=== PATIENT | female | born 1955 | race Caucasian/White ===

== ENCOUNTER → 2022-05-12 07:48 | Outpatient (CLI) | payer OTHER, SELFPAY ==
--- NOTE | 2022-05-12 07:49 | DI.MG.S_ITS ---
BILATERAL DIGITAL SCREENING MAMMOGRAM 3D/2D WITH CAD: 05/12/2022 CLINICAL: Routine screening. Family history of breast cancer. Comparison is made to exams dated: 03/26/2021 mammogram, 03/19/2020 mammogram, and 10/04/2018 mammogram - outside location. Both breasts are extremely dense, which lowers the sensitivity of mammography (category d />75% glandular tissue). Current study was also evaluated with a Computer Aided Detection (CAD) system. No significant masses, calcifications, or other findings are seen in either breast. There has been no significant interval change. IMPRESSION: NEGATIVE There is no mammographic evidence of malignancy. A 1 year screening mammogram is recommended. Based on Tyrer-Cuzick model (a risk assessment model), the patient's lifetime risk is 26.7% and her 10 year risk is 13.7%. If a patient has an elevated risk, a more comprehensive evaluation should be considered and/or a referral to a genetic counselor. The [place] [employer], [place] [employer], and NCCN Guidelines advise the consideration of Breast MRI as an adjunct to screening mammography in patients whose Lifetime risk to develop breast cancer is 20% or higher. This exam was interpreted at Station ID: [id number]. NOTE: For mammograms, a report in lay terms will be sent to the patient. Approximately 15% of breast malignancies will not be visualized mammographically. In the management of a palpable breast mass, a negative mammogram must not discourage biopsy of a clinically suspicious lesion. Electronically Signed By: Jonah singh/patti:05/12/2022 10:36:44 letter sent: Normal Exam ACR BI-RADS Category 1: Negative 3341F
== END ==
PROVIDERS: PCP Registered Nurse Diabetes Educator; Referring Provider Registered Nurse Diabetes Educator; Visit Provider Registered Nurse Diabetes Educator
DX: Z12.31 Encounter for screening mammogram for malignant neoplasm of breast (principal); Z80.3 Family history of malignant neoplasm of breast
CPT/HCPCS: 77063; 77067

== ENCOUNTER → 2022-06-20 08:02 | Outpatient (CLI) | payer OTHER, SELFPAY ==
[2022-06-20 09:08] LABS: Appearance Urine UA CLEAR; Bilirubin Urine UA NEGATIVE (NEGATIVE); Color Urine UA YELLOW; Glucose Urine UA NEGATIVE (Negative); Ketones Urine UA NEGATIVE (NEGATIVE); Leukocyte Esterase Urine UA NEGATIVE (NEGATIVE); Nitrite Urine UA NEGATIVE (Negative); Occult Blood Urine UA NEGATIVE (Negative); Protein Urine UA NEGATIVE (Negative); Specific Gravity Urine UA <=1.005 (1.000-1.035); Urobilinogen Urine UA 0.2 E.U./dL (0.2)
[2022-06-20 09:12] LABS: pH Urine UA 6.5 (4.5-8.0)
[2022-06-20 09:18] LABS: Bacteria Urine Moderate (10-30); Culture Indicated Urine Specimen Cultured; RBC Urine None Seen (0-5/HPF); Squamous Epithelial Cell Urine 1-5 /HPF (0-5/HPF); WBC Urine 1-5/HPF (0-5/HPF)
== END ==
PROVIDERS: PCP Registered Nurse Diabetes Educator; Referring Provider Registered Nurse Diabetes Educator; Visit Provider Registered Nurse Diabetes Educator
DX: R30.9 Painful micturition, unspecified (principal); R35.0 Frequency of micturition
CPT/HCPCS: 81001; 87086

== ENCOUNTER → 2022-06-26 09:03 | Outpatient (CLI) | payer OTHER, SELFPAY ==
[2022-06-26 09:45] LABS: Appearance Urine UA CLEAR; Bilirubin Urine UA NEGATIVE (NEGATIVE); Color Urine UA YELLOW; Glucose Urine UA NEGATIVE (Negative); Ketones Urine UA NEGATIVE (NEGATIVE); Leukocyte Esterase Urine UA TRACE (NEGATIVE); Nitrite Urine UA NEGATIVE (Negative); Occult Blood Urine UA NEGATIVE (Negative); Protein Urine UA NEGATIVE (Negative); Specific Gravity Urine UA <=1.005 (1.000-1.035); Urobilinogen Urine UA 0.2 E.U./dL (0.2)
[2022-06-26 09:50] LABS: pH Urine UA 5.5 (4.5-8.0)
[2022-06-26 09:52] LABS: Bacteria Urine Many (>30); Culture Indicated Urine Specimen Cultured; RBC Urine None Seen (0-5/HPF); Squamous Epithelial Cell Urine 1-5 /HPF (0-5/HPF); WBC Urine 1-5/HPF (0-5/HPF)
== END ==
PROVIDERS: PCP Registered Nurse Diabetes Educator; Referring Provider Registered Nurse Diabetes Educator; Visit Provider Registered Nurse Diabetes Educator
DX: R30.9 Painful micturition, unspecified (principal); R39.15 Urgency of urination
CPT/HCPCS: 81001; 87086

== ENCOUNTER → 2022-08-21 15:57 | Outpatient (CLI) | payer OTHER, SELFPAY ==
--- NOTE | 2022-08-21 15:59 | DI.RAD.S_ITS ---
PROCEDURE: XR KNEE LT 3V INDICATIONS: Left knee strain TECHNIQUE: 3 views of the knee were acquired. COMPARISON: None. FINDINGS: Bones: No fractures or dislocations. No suspicious bony lesions. Mild fragmentation of the tibial tubercle. Soft tissues: No joint effusion. No suspicious soft tissue calcifications. IMPRESSION: 1. No definite acute radiographic abnormality. If pain persists with conservative management, consider cross sectional imaging such as CT or MRI for further assessment. 2. Mild fragmentation of the tibial tubercle which can be associated with remote Darlington-Schlatter's disease. Dictated by: Thomas Madden [facility] Interpreted: Ronald De Los Santos MD on 08/21/2022 at 16:18 Transcribed by: SHAQUILLE on 08/21/2022 at 16:19 Approved by: Ronald De Los Santos M.D. on 08/21/2022 at 17:10
== END ==
PROVIDERS: PCP Registered Nurse Diabetes Educator; Referring Provider Nurse Practitioner Family; Visit Provider Nurse Practitioner Family
DX: S86.912A Strain of unspecified muscle(s) and tendon(s) at lower leg level, left leg, initial encounter (principal); X58.XXXA Exposure to other specified factors, initial encounter
CPT/HCPCS: 73562

== ENCOUNTER → 2023-01-22 08:08 | Outpatient (CLI) | payer OTHER, SELFPAY ==
--- NOTE | 2023-01-22 08:10 | DI.MRI.S_ITS ---
PROCEDURE: MR SHOULDER LT WO CON INDICATIONS: left shoulder pain TECHNIQUE: Noncontrast oblique coronal T2 fast spin echo with fat saturation, oblique sagittal T1 spin echo and T2 fast spin echo with fat saturation, axial T1 spin echo and T2 fast spin echo with fat saturation through the shoulder. COMPARISON: None. FINDINGS: Image quality: Excellent. Rotator cuff: There is low-grade intrasubstance and bursal surface tearing of the anterior/mid supraspinatus tendon at the humeral insertion site extending to the musculotendinous junction. Infraspinatus, subscapularis and teres minor tendons are intact. Bones and bursae: No bone marrow contusions or fractures. Mild glenohumeral and moderate acromioclavicular joint degeneration. The acromion demonstrates conventional anatomy, without an os acromiale. No pathologic subacromial-subdeltoid or subcoracoid bursal fluid is present. Capsule and soft tissues: Labrum is grossly intact The long head of the biceps tendon demonstrates normal location and morphology. The rotator interval appears normal, without fibrosis. The coracohumeral ligament is normal in thickness. IMPRESSION: 1. Low-grade tearing of the supraspinatus tendon. 2. Acromioclavicular and glenohumeral joint osteoarthritis. Dictated by: Nancy Wilson M.D. on 01/25/2023 at 10:03 Approved by: Nancy Wilson M.D. on 01/25/2023 at 10:05
== END ==
PROVIDERS: Family Provider Registered Nurse Diabetes Educator; PCP Registered Nurse Diabetes Educator; Referring Provider Family Medicine; Visit Provider Family Medicine
DX: M19.012 Primary osteoarthritis, left shoulder (principal); M75.112 Incomplete rotator cuff tear or rupture of left shoulder, not specified as traumatic; M25.512 Pain in left shoulder
CPT/HCPCS: 73221

== ENCOUNTER → 2023-05-06 09:12 | Outpatient (CLI) | payer OTHER, SELFPAY ==
--- NOTE | 2023-05-06 09:14 | DI.NM.S_ITS ---
PROCEDURE: NM BETTY PERF SPECT R&S PHARM Rest and pharmacological stress myocardial perfusion SPECT with gated imaging and ejection fraction RADIOPHARMACEUTICAL: 11.5 mCi Tc-99m tetrafosmin IV at rest and 24.8 mCi Tc-99m tetrafosmin IV at peak effect of pharmacological stress. A 7-ygm-liietxgc was performed. INDICATIONS: eval exertional CP, dizziness, SORIANO TECHNIQUE: Radiopharmaceutical was injected at peak stress test, and also at rest. SPECT images were obtained. SPECT myocardial perfusion images were displayed in short axis, horizontal long axis, and vertical long axis views. Gated images were reviewed using [employer] software. COMPARISON: None. CARDIAC STRESS: A pharmacologic stress test was performed under the supervision of an attending staff, using an infusion of regadenoson 0.4 mg IV. Hemodynamic data: There is normal blood pressure and heart rate response to pharmacologic stress. Symptoms: The patient denied anginal chest pain. EKG: No diagnostic changes of ischemia; no ectopy. FINDINGS: Raw data: There is good myocardial uptake of radiotracer. No significant motion artifacts. Koln-if-mmnqz ratio is 0.14 (normal is less than 0.38 for tetrafosmin tracer). Left ventricle function: Gated images demonstrate normal left ventricular wall thickening. No segmental wall motion abnormalities. No transient ischemic dilation; TID is 0.83 (normal less than 1.3). Left ventricle resting end diastolic volume is 60 mL. Left ventricle stress ejection fraction is >75%; normal range is above 45%. Myocardial perfusion: There is normal distribution of activity in the right and left ventricular myocardium. No fixed or reversible perfusion defects. IMPRESSION: Low risk study. No evidence of biologic induced ischemia or scar. Normal LV size with hyperdynamic function. Dictated by: Della Stacy D.O. on 05/06/2023 at 16:35 Approved by: Della Stacy D.O. on 05/06/2023 at 16:37
--- NOTE | 2023-05-06 09:14 | DI.ECHO.S_ITS ---
[facility] +---------+ : : [address] : : : : [id number] : : : : Phone: [phone]---------+ Echocardiogram Report + + :Name: AYE GILMAN Study Date: 05/06/2023 Height: 61 in : :[facility] ReadingLocation: Weight: 115 lb : : Gender: Female BSA: 1.5 m2 : :: 1955 Age: 67 yrs BP: 111/72 mmHg: :Reason For Study: CHEST PAIN, DIZZINESS : :Ordering Physician: SAMIA, : :FRANCHESKA Performed By: Dalia Carney : :Referring: FRANCHESKA GRACIA : + + Interpretation Summary The left ventricle is normal in size and wall thickness. Left ventricular systolic function appears normal without focal wall motion abnormalities. The ejection fraction is estimated to be 60-65%. Diastolic parameters suggest a relaxation abnormality of the left ventricle, consistent with probable normal filling pressures. The right ventricle is normal in size and function. The right ventricular systolic pressure is estimated to be at least 22 mmHg based on an estimated right atrial pressure of 3 mm Hg. The left atrial size is normal. There is no significant valvular heart disease. The aortic root is normal size. Procedure: A two-dimensional transthoracic echocardiogram with color flow and Doppler was performed. The study quality was technically adequate. There is no prior echocardiogram noted for this patient. The patient was in sinus rhythm with heart rates between 59-65 bpm during the exam. Left Ventricle: The left ventricle is normal in size and wall thickness. Left ventricular systolic function appears normal without focal wall motion abnormalities. The ejection fraction is estimated to be 60-65%. Diastolic parameters suggest a relaxation abnormality of the left ventricle, consistent with probable normal filling pressures. Right Ventricle: The right ventricle is normal in size and function. Atria: The left atrial size is normal. Right atrial size is normal. There is no Doppler evidence for an interatrial shunt. Mitral Valve: The mitral valve is normal in structure and function. There is trace mitral regurgitation. Aortic Valve: The aortic valve is trileaflet. The aortic valve opens well. There is no aortic valve stenosis. No aortic regurgitation is present. Tricuspid Valve: The tricuspid valve is normal in structure and function. There is mild tricuspid regurgitation. The right ventricular systolic pressure is estimated to be at least 22 mmHg based on an estimated right atrial pressure of 3 mm Hg. Pulmonic Valve: The pulmonic valve leaflets are thin and pliable; valve motion is normal. There is no pulmonic valvular regurgitation. There is no significant valvular heart disease. Great Vessels: The aortic root is normal size. The dimensions of the ascending aorta are normal. The IVC is of normal diameter and collapses greater than 50% with a sniff. This suggests a low right atrial pressure of 3 mm Hg. Pericardium/ Pleura There is no pericardial effusion. There is no pleural effusion. MMode/2D Measurements & Calculations LVIDd: 4.0 cm LVOT diam: 2.1 cm LVIDs: 3.0 cm Ao root diam: 2.7 cm FS: 26.3 % asc Aorta Diam: 2.7 cm IVSd: 0.63 cm Ao Arch Diam (Prox Trans): 2.2 cm LVPWd: 0.69 cm LV mancilla. diameter/BSA (cm/m^2): 2.7 LV sys. diameter/BSA (cm/m^2): 2.0 LA A2 area: 11.7 cm2 RA long axis: 3.8 cm LA A4 area: 8.7 cm2 RA area: 11.5 cm2 LA length (vol): 3.7 cm RA vol: 29.5 ml LA vol: 23.5 ml RA : 19.7 ml/m2 LA vol index: 15.7 ml/m2 IVC diam: 1.2 cm RVD1 (basal): 3.7 cm RVD2 (mid): 2.8 cm TAPSE: 2.5 cm Doppler Measurements & Calculations Ao V2 max: 105.2 cm/sec LVOT Max Ac: 78.6 cm/sec Ao V2 mean: 71.6 cm/sec LV V1 max P.5 mmHg Ao max P.4 mmHg LV V1 VTI: 18.1 cm Ao mean P.3 mmHg MARYCARMEN(I,D): 2.5 cm2 Ao V2 VTI: 23.7 cm MARYCARMEN(V,D): 2.5 cm2 sev ratio: 0.76 MARYCARMEN indexed to BSA (cm^2/m^2): 1.7 MV E max ac: 64.8 cm/sec TR max ac: 215.4 cm/sec MV A max ac: 73.0 cm/sec TR max P.6 mmHg MV E/A: 0.89 PA V2 max: 71.1 cm/sec Med Peak E' Ac: 10.8 cm/sec PA V2 mean: 51.2 cm/sec E/E' med: 6.0 PA mean P.2 mmHg Lat Peak E' Ac: 10.2 cm/sec PA pr(Accel): 17.3 mmHg E/E' lat: 6.4 E/e' average: 6.2 MV dec time: 0.22 sec SV(LVOT): 60.4 ml Reading Physician:01:26 PM
== END ==
PROVIDERS: Family Provider Registered Nurse Diabetes Educator; PCP Registered Nurse Diabetes Educator; Referring Provider Registered Nurse Diabetes Educator; Visit Provider Registered Nurse Diabetes Educator
DX: I07.1 Rheumatic tricuspid insufficiency (principal); R07.9 Chest pain, unspecified; R42 Dizziness and giddiness; R06.09 Other forms of dyspnea
CPT/HCPCS: 78452; 93017; 93306; A9502; J2785

== ENCOUNTER → 2023-10-29 15:16 | Outpatient (CLI) | payer OTHER, SELFPAY ==
--- NOTE | 2023-10-29 15:16 | DI.MG.S_ITS ---
BILATERAL DIGITAL SCREENING MAMMOGRAM 3D/2D WITH CAD: 10/29/2023 CLINICAL: Routine screening. Family history of breast cancer. Comparison is made to exams dated: 11/10/2022 breast MRI - [facility], 05/12/2022 mammogram - [facility], 03/26/2021 mammogram, and 03/19/2020 mammogram - outside location. Both breasts are extremely dense, which lowers the sensitivity of mammography (category d />75% glandular tissue). Current study was also evaluated with a Computer Aided Detection (CAD) system. No significant masses, calcifications, or other findings are seen in either breast. There has been no significant interval change. IMPRESSION: NEGATIVE There is no mammographic evidence of malignancy. A 1 year screening mammogram is recommended. Based on Tyrer-Cuzick model (a risk assessment model), the patient's lifetime risk is 26.0% and her 10 year risk is 14.4%. If a patient has an elevated risk, a more comprehensive evaluation should be considered and/or a referral to a genetic counselor. The [place] [employer], [place] [employer], and NCCN Guidelines advise the consideration of Breast MRI as an adjunct to screening mammography in patients whose Lifetime risk to develop breast cancer is 20% or higher. This exam was interpreted at Station ID: [id number]. NOTE: For mammograms, a report in lay terms will be sent to the patient. Approximately 15% of breast malignancies will not be visualized mammographically. In the management of a palpable breast mass, a negative mammogram must not discourage biopsy of a clinically suspicious lesion. Electronically Signed By: Yevgeniy mackey/patti:10/29/2023 16:36:33 letter sent: Normal Exam ACR BI-RADS Category 1: Negative 3341F
== END ==
PROVIDERS: Family Provider Registered Nurse Diabetes Educator; PCP Registered Nurse Diabetes Educator; Referring Provider Registered Nurse Diabetes Educator; Visit Provider Registered Nurse Diabetes Educator
DX: Z12.31 Encounter for screening mammogram for malignant neoplasm of breast (principal); Z80.3 Family history of malignant neoplasm of breast; R92.343 Mammographic extreme density, bilateral breasts
CPT/HCPCS: 77063; 77067

== ENCOUNTER → 2023-12-08 08:46 | Outpatient (CLI) | payer OTHER, SELFPAY ==
--- NOTE | 2023-12-08 08:55 | DI.CT.S_ITS ---
PROCEDURE: CT SINUS SCREEN WO CON INDICATIONS: further eval R maxillary sinus TECHNIQUE: Noncontrast 3.0 mm axial images acquired from the frontal sinuses to the mid-sella, with coronal and sagittal reformats. For radiation dose reduction, the following was used: automated exposure control, adjustment of mA and/or kV according to patient size. COMPARISON: None. FINDINGS: Image quality: Excellent. Maxillary Sinuses: There is moderate mucosal thickening within the right maxillary sinus. The right maxillary sinus is small in size, with thickened anterior lauren. Along the medial aspects of both maxillary sinuses, nonnative ostia can be seen. The left maxillary sinus is otherwise within normal limits. Ethmoid Air Cells: No bony remodeling or destruction. Sinuses are clear. Sphenoid Sinuses: No bony remodeling or destruction. Sinuses are clear. Frontal Sinuses: No bony remodeling or destruction. Sinuses are clear. Ostiomeatal Complexes: The ostiomeatal complexes are patent, yet they are highly constitutionally narrowed, with bilateral Maxx cells. Miscellaneous: Visualized intra-orbital contents are normal. No tee bullosa or paradoxical turbinate curvature. There is mild rightward nasal septal deviation. IMPRESSION: Focal right maxillary sinus disease, with a chronic appearance, with remodeling change seen. There are nonnative ostia seen along the medial lauren of both maxillary sinuses. The ostiomeatal complexes are patent, yet they are highly constitutionally narrowed, with bilateral Maxx cells. Dictated by: Jesus Ferrari M.D. on 12/08/2023 at 9:57 Approved by: Jesus Ferrari M.D. on 12/08/2023 at 9:59
== END ==
PROVIDERS: Family Provider Registered Nurse Diabetes Educator; PCP Registered Nurse Diabetes Educator; Referring Provider Registered Nurse Diabetes Educator; Visit Provider Registered Nurse Diabetes Educator
DX: J32.0 Chronic maxillary sinusitis (principal)
CPT/HCPCS: 70486

== ENCOUNTER → 2024-07-10 07:21 | Outpatient (CLI) | payer OTHER, SELFPAY ==
[2024-07-10 07:58] LABS: Alanine Aminotransferase 21 IU/L (<35); Albumin 4.4 g/dL (3.5-5.0); Albumin Globulin Ratio 2.1 (1.0-2.8); Alkaline Phosphatase 37 U/L (38-126); Aspartate Aminotransferase 30 IU/L (14-36); Bilirubin Total 0.6 mg/dL (0.2-1.3); Bilirubin Unconjugated 0.5 mg/dL (0.0-1.1); Cholesterol 158 mg/dL (140-199); Globulin 2.1 g/dL (1.7-4.1); HDL Cholesterol 60 mg/dL (40-60); HEMOLYSIS < 15 (0-50); LDL Cholesterol Calculated 78 mg/dL (<100); Total Protein 6.5 g/dL (6.3-8.2); Triglycerides 99 mg/dL (35-150)
== END ==
PROVIDERS: Family Provider Registered Nurse Diabetes Educator; PCP Registered Nurse Diabetes Educator; Referring Provider Internal Medicine Cardiovascular Disease; Visit Provider Internal Medicine Cardiovascular Disease
DX: E78.2 Mixed hyperlipidemia (principal)
CPT/HCPCS: 36415; 80061; 80076

== ENCOUNTER → 2024-08-09 07:55 | Outpatient (CLI) | payer OTHER, SELFPAY ==
--- NOTE | 2024-08-09 07:58 | DI.MRI.S_ITS ---
MR breast BI wo/w con: 08/09/2024. BI-RADS: 1 CLINICAL: 69-year old female for bilateral diagnostic breast MRI. High-Risk Screening MRI. Current reported family history of breast cancer: mother. PRIOR EXAMS 10/29/2023, 11/10/2022, 05/12/2022. MRI TECHNIQUE Bilateral breast MRI was performed on a 1.5 Cristela magnet using a dedicated breast coil with mild compression. Axial T1 and T2 STIR sequences were obtained. Dynamic contrast enhanced VIBRANT fat-suppressed sequences were obtained. Delayed sagittal high resolution or sagittal reconstructed isotropic sequence was also obtained. Subtraction images and maximum intensity projection images were obtained. The study was evaluated using [employer] software. IV Contrast: 20 ml ProHance. FIBROGLANDULAR TISSUE Bilateral: D. Extreme fibroglandular tissue. BACKGROUND PARENCHYMAL ENHANCEMENT Bilateral: Mild symmetrical background parenchymal enhancement. BREAST FINDINGS Bilateral There are no abnormal axillary or internal mammary lymph nodes. No suspicious mass, suspicious non-mass enhancement, or other concerning finding identified. No significant change since previous exam(s). IMPRESSION: * No evidence of malignancy. RECOMMENDATIONS Bilateral * If this patient has an elevated lifetime risk for breast cancer of over 20%, recommend consideration for annual screening breast MRI as an adjunct to screening mammography. This is to be offset by approximately 6 months from patient's mammogram. * Annual screening mammography. COMMENTS: The imaging literature indicates that a negative contrast breast MRI examination has a high sensitivity and a moderate specificity for detecting and excluding invasive carcinomas to a detection threshold of 3-5 mm; nonetheless, appropriate clinical and mammographic follow-up are recommended. MRI is not sensitive for detecting DCIS (ductal carcinoma in situ) and may not detect large invasive neoplasms that show only minimal enhancement such as mucinous carcinoma. If there are suspicious calcifications or clinically worrisome palpable masses, then biopsy should still be considered. Invasive neoplasms can be hidden by co-existent and benign enhancement caused by mastitis, hormone therapy effects, radiation therapy, , and recent biopsy or surgery. False positive examinations can occur in a number of circumstances, including breasts that have recently been subject to invasive procedures and those that contain atypical ductal hyperplasia, hormonally stimulated glandular tissue, fat necrosis, or radial scars. OVERALL ASSESSMENT CATEGORY BI-RADS-1: Negative. ELECTRONICALLY SIGNED: Sridevi Wood M.D. on 08/09/2024 at 04:22:43 PM PT Interpreting Station ID: [id number]
== END ==
LOC: MRI 07:56
PROVIDERS: Family Provider Registered Nurse Diabetes Educator; PCP Registered Nurse Diabetes Educator; Referring Provider Registered Nurse Diabetes Educator; Visit Provider Registered Nurse Diabetes Educator
DX: Z12.39 Encounter for other screening for malignant neoplasm of breast (principal); Z80.3 Family history of malignant neoplasm of breast
CPT/HCPCS: 77049; A9579

== ENCOUNTER 2024-08-12 16:43 | Emergency (ER) | payer OTHER, SELFPAY ==
[2024-08-12] VITALS (14 sets, daily range): BP systolic 108–142; BP diastolic 58–87; PULSE 59–90; RESP 18–24; TEMP 36.4; O2SAT 96–99; BMI 21.5
[2024-08-12] MEDS: ONDANSETRON 4 MG/2 ML INJ IV (17:04)
[2024-08-12] MEDS: KETOROLAC 30 MG/ML VIAL 15 MG IV (17:10)
[2024-08-12 17:15] LABS: Add Manual Diff / Slide Review NO; Basophils Absolute Auto 0 /uL (0-100); Basophils Percent Auto 0.6 % (0-2); Eosinophils Absolute Auto 100 /uL (0-450); Eosinophils Percent Auto 0.7 % (2-4); Hematocrit 40.6 % (36-46); Hemoglobin 13.6 g/dL (12.0-16.0); Lymphocytes Absolute Auto 2500 /uL (1100-4500); Lymphocytes Percent Auto 33.5 % (25-40); Mean Corpuscular HGB Conc 33.6 % (30-36); Mean Corpuscular Hemoglobin 30.6 PG (26-34); Mean Corpuscular Volume 91.1 fL (80-100); Monocytes Absolute Auto 700 /uL (0-900); Monocytes Percent Auto 8.7 % (3-14); Neutrophils Absolute Auto 4200 /uL (1500-7000); Neutrophils Percent Auto 56.5 % (50-75); Platelet Count 196 X10^3/uL (150-400); Red Blood Cell Count 4.45 X10^6/uL (4.0-5.2); Red Cell Distribution Width 12.9 % (11.6-14.8); White Blood Cell Count 7.5 X10^3/uL (4.5-11.0)
--- NOTE | 2024-08-12 17:21 | EKG_ITS ---
[address] [address] Test Date: 2024-08-12 Pat Name: Belkys Montemayor Department: [facility] Room: Gender: Female [employer]: : 1955 Requested By: Order Number: [id number] Reading MD: Ben Paz Measurements Intervals [place] Rate: 70 P: 80 HI: 174 QRS: 67 QRSD: 84 T: 47 QT: 402 QTc: 434 Interpretive Statements Normal sinus rhythm Electronically Signed On 08-15-2024 20:12:08 PDT by Ben Paz
[2024-08-12 17:27] LABS: Alanine Aminotransferase 31 IU/L (<35); Albumin 5.1 g/dL (3.5-5.0); Albumin Globulin Ratio 2.1 (1.0-2.8); Alkaline Phosphatase 45 U/L (38-126); Aspartate Aminotransferase 40 IU/L (14-36); BUN Creatinine Ratio 27.7 (6-22); Bilirubin Total 0.6 mg/dL (0.2-1.3); Blood Urea Nitrogen 23 mg/dL (7-17); Carbon Dioxide 25 mmol/L (22-32); Chloride 101 mmol/L (98-107); Estimated Glomerular Filt Rate > 60 mL/min (>60); Globulin 2.4 g/dL (1.7-4.1); Glucose 112 mg/dL (80-110); HEMOLYSIS 17 (0-50); Lipase 80 U/L (23-300); Potassium 3.5 mmol/L (3.4-5.1); Sodium 138 mmol/L (137-145); Total Protein 7.5 g/dL (6.3-8.2)
--- NOTE | 2024-08-12 18:26 | ED.GENADULT ---
HPI - General Adult General Chief complaint: Abdominal Pain Stated complaint: intense abd pain lt side through to back, nausea Time Seen by Provider: 08/12/24 18:14 Source: patient Mode of arrival: Wheelchair History of Present Illness HPI narrative: 61-year-old woman healthy, up this morning to long bike ride came back showing with her when she had acute onset of severe left flank to left upper quadrant pain. Was unrelenting, she came to the emergency department and the pain has been entirely relieved with Toradol. She notes that her 1st void after this episode of pain was quite bloody. She is not been noting any urinary symptoms prior to today and is not currently having dysuria or urgency. No nausea, vomiting, diarrhea, chest pain, palpitations, headache Related Data Home Medications Medication Instructions Recorded Confirmed Saccharomyces boulardii 250 mg 5,000 mmu cells PO DAILY 03/10/22 01/10/24 capsule (Daily Probiotic (S. boulardii)) cholecalciferol (vitamin D3) 50 50 mcg PO DAILY General Health 03/10/22 01/10/24 mcg (2,000 unit) capsule (Vitamin D3) multivitamin with minerals 1 tab PO DAILY General health 03/10/22 01/10/24 omega 4-ymg-yrg-fish oil 1,000 mg 1 cap PO DAILY General Health 03/10/22 01/10/24 (120 mg-180 mg) capsule (Fish Oil) vitamin B complex 1 tab PO DAILY General Health 03/10/22 01/10/24 omeprazole 20 mg capsule,delayed 20 mg PO DAILY 03/30/23 01/10/24 release methenamine-sodium salicylate 162 tab PO Reduce UTI's 10/11/23 01/10/24 mg-162.5 mg tablet (AZO Urinary Tract Defense) s-adenosylmethionine 400 mg tablet 400 mg PO DAILY joint pain 10/11/23 01/10/24 (SHAR-e) coenzyme Q10 75 mg capsule (Ultra 75 mg PO DAILY 11/22/23 01/10/24 CoQ10) trazodone 50 mg tablet 25 mg PO BEDTIME 11/22/23 01/10/24 Previous Rx's Medication Instructions Recorded ketoconazole 2 % shampoo 1 applic topical 2XW #120 mL 05/08/22 tretinoin 0.025 % topical cream 1 applic topical BEDTIME Skin Care 06/28/23 #45 grams estradiol 10 mcg vaginal tablet 10 mcg vaginal 2XW #30 tabs 10/11/23 gabapentin 100 mg capsule 100 mg PO BEDTIME #90 caps 10/11/23 meloxicam 7.5 mg tablet 7.5 mg PO BID #180 tabs 12/14/23 oxycodone 5 mg tablet 5 mg PO Q6H PRN pain #14 tabs 08/12/24 tamsulosin 0.4 mg capsule 0.4 mg PO DAILY #14 caps 08/12/24 Allergies Allergy/AdvReac Type Severity Reaction Status Date / Time adhesive Allergy Rash Verified 08/12/24 16:51 Review of Systems Review of Systems Narrative: Pertinent positive and negative findings as per HPI Patient History Medical History Pes anserine bursitis Dyspepsia Genitourinary syndrome of menopause Rosacea Acne Osteoarthritis (~2014) Depression Anxiety Migraines Headache Foot pain (~2018) Mumps (~1961) Chicken pox (~1959) Tinnitus Hearing loss (~2013) History of gynecologic disorder (~2013) Human papilloma virus (~1979) History of urinary incontinence (~1999) Fecal incontinence (~2011) Peptic ulcer disease (~1967) Thyroid nodule (~1984) Osteoporosis Barretts esophagus (~2020) Social History Smoking Status: Never smoker Smoking Status: Never smoker Exam Initial Vital Signs Initial Vital Signs: Vital Signs Temperature 97.5 F L 08/12/24 16:49 Pulse Rate 90 08/12/24 16:49 Respiratory Rate 24 08/12/24 16:49 Blood Pressure 142/72 H 08/12/24 16:49 Pulse Oximetry 99 08/12/24 16:49 Oxygen Delivery Method Room Air 08/12/24 16:49 General: Healthy appearing, in no acute distress. Able to give a complete and coherent history. Well-nourished well-developed HEENT: Moist mucous membranes, normal sclera with reactive pupils, Respiratory: Lungs are clear to auscultation, no wheezing no rales no rhonchi. Full and symmetrical air movement Cardiac: Regular rate and rhythm no murmurs no bruits Abdomen: Soft, no specific abdominal tenderness with no rebound or guarding, mild left flank pain Skin: Warm and dry, no rashes Neurologic: Grossly neurologically intact with no obvious asymmetries or abnormalities Extremities: No trauma, well perfused Psych: Cooperative, appropriate insight and affect Course Orders Ordered: ED Orders 08/12/24 16:51 EKG-12 Lead Stat 08/12/24 17:00 Complete Blood Count AUTO DIFF Stat Comprehensive Metabolic Panel Stat Lipase Stat 08/12/24 18:15 Urine Culture Stat Urine Microscopic Stat 08/12/24 18:30 CT kidney ureter bladder (KUB) Stat Ondansetron HCl (Ondansetron 4 Mg/2 Ml Inj) 4 mg IV NOW PRN PRN Reason: Nausea And Vomiting Last Admin: 08/12/24 17:04 Dose: 4 mg Documented By: JOSE A Ondansetron HCl (Ondansetron 4 Mg Odt) 4 mg PO NOW PRN PRN Reason: Nausea And Vomiting Discontinued Medications Ketorolac Tromethamine (Ketorolac 30 Mg/Ml Vial) 15 mg IV NOW ONE Stop: 08/12/24 17:07 Last Admin: 08/12/24 17:10 Dose: 15 mg Documented By: DONN Vital Signs Vital signs: Vital Signs - 8 hr 08/12/24 16:49 08/12/24 17:25 08/12/24 17:27 Temperature 97.5 F L Pulse Rate 90 71 67 Respiratory Rate 24 Blood Pressure 142/72 H Pulse Oximetry 99 98 Oxygen Delivery Method Room Air 08/12/24 17:27 08/12/24 17:30 08/12/24 17:30 Temperature Pulse Rate 71 Respiratory Rate Blood Pressure 138/63 128/87 Pulse Oximetry 97 Oxygen Delivery Method 08/12/24 18:00 08/12/24 18:01 08/12/24 18:01 Temperature Pulse Rate 71 Respiratory Rate Blood Pressure 135/58 L Pulse Oximetry 97 96 Oxygen Delivery Method 08/12/24 18:30 08/12/24 18:31 08/12/24 18:31 Temperature Pulse Rate 80 67 Respiratory Rate Blood Pressure 128/59 L Pulse Oximetry 98 98 Oxygen Delivery Method 08/12/24 18:41 08/12/24 18:41 08/12/24 19:00 Temperature Pulse Rate 73 62 Respiratory Rate Blood Pressure 134/63 Pulse Oximetry 98 98 Oxygen Delivery Method Room Air 08/12/24 19:00 Temperature Pulse Rate Respiratory Rate Blood Pressure 139/64 Pulse Oximetry Oxygen Delivery Method Medical Decision Making Lab Data 08/12/24 17:00 08/12/24 17:00 Labs: Lab Results 08/12/24 08/12/24 Range/Units 17:00 18:15 WBC 7.5 (4.5-11.0) X10^3/uL RBC 4.45 (4.0-5.2) X10^6/uL Hgb 13.6 (12.0-16.0) g/dL Hct 40.6 (36-46) % MCV 91.1 (80-100) fL MCH 30.6 (26-34) PG MCHC 33.6 (30-36) % RDW 12.9 (11.6-14.8) % Plt Count 196 (150-400) X10^3/uL Neut % (Auto) 56.5 (50-75) % Lymph % (Auto) 33.5 (25-40) % Carl[place] % (Auto) 8.7 (3-14) % Eos % (Auto) 0.7 L (2-4) % Baso % (Auto) 0.6 (0-2) % Neut # (Auto) 4200 (9640-5616) /uL Lymph # (Auto) 2500 (7707-6486) /uL Carlton # (Auto) 700 (0-900) /uL Eos # (Auto) 100 (0-450) /uL Baso # (Auto) 0 (0-100) /uL Sodium 138 (137-145) mmol/L Potassium 3.5 (3.4-5.1) mmol/L Chloride 101 (98-107) mmol/L Carbon Dioxide 25 (22-32) mmol/L BUN 23 H (7-17) mg/dL Creatinine 0.83 (0.52-1.04) mg/dL Estimated GFR > 60 (>60) mL/min BUN/Creatinine Ratio 27.7 H (6-22) Glucose 112 H (80-110) mg/dL Calcium 10.0 (8.4-10.2) mg/dL Total Bilirubin 0.6 (0.2-1.3) mg/dL AST 40 H (14-36) IU/L ALT 31 (<35) IU/L Alkaline Phosphatase 45 (38-126) U/L Total Protein 7.5 (6.3-8.2) g/dL Albumin 5.1 H (3.5-5.0) g/dL Globulin 2.4 (1.7-4.1) g/dL Albumin/Globulin Ratio 2.1 (1.0-2.8) Lipase 80 (23-300) U/L Urine RBC >100/hpf H (0-5/HPF) Urine WBC 0-1/hpf (0-5/HPF) Ur Squamous Epith Cells 1-5 /hpf (0-5/HPF) Urine Bacteria Occasional (0-1) (None) Vol Urine Centrifuged 10ml (spun) Urine Dip Bedside Urine Glucose Negative Bedside Urine Bilirubin - Negative Bedside Urine Ketone +/- 5 Urine Specific [place] 1.010 Bedside Urine Occult Blood +++ Bedside Urine pH 7.5 Bedside Urine Protein + 30 Bedside Urine Urobilinogen - Negative Bedside Urine Nitrite - Negative Bedside Urine Leukocytes +/- 15 Esterase Point of care testing: Urine Dip Bedside Urine Glucose Negative Bedside Urine Bilirubin - Negative Bedside Urine Ketone +/- 5 Urine Specific [place] 1.010 Bedside Urine Occult Blood +++ Bedside Urine pH 7.5 Bedside Urine Protein + 30 Bedside Urine Urobilinogen - Negative Bedside Urine Nitrite - Negative Bedside Urine Leukocytes +/- [address] scan - abdomen/pelvis: Radiologist's Impression: PROCEDURE: CT KIDNEY URETER BLADDER (KUB) INDICATIONS: left flank pain TECHNIQUE: Axial sections were acquired from the lung bases to the pubic symphysis. Coronal and sagittal reformats were performed. For radiation dose reduction, the following was used: automated exposure control, adjustment of mA and/or kV according to patient size. COMPARISON: None. FINDINGS: Image quality: Diagnostic. Lower Chest: No significant findings. URINARY: Right Kidney: No stones or hydronephrosis. Right Ureter: No hydroureter. Left Kidney: There is mild prominence of left renal collecting system. Nonobstructing stone measures 6 mm in size is seen in midpole left kidney and measures 997 Hounsfield unit in density. There is a linear calcification in proximal left ureter just distal to left UPJ measures 4 x 2 mm in size series 2, image 49 and series 4 image 40. Left Ureter: More distal left ureter is normal in size. Bladder: Normal wall thickness. No stones. ABDOMEN: Liver: No contour-deforming solid mass. Gallbladder: No radiopaque gallstones or wall thickening. Biliary ducts: No biliary dilation. Pancreas: No ductal dilation. Spleen: Size is within normal limits. Adrenal Glands: No adrenal nodules. Stomach and Bowel: Normal colonic caliber, without significant wall thickening. Moderate fecal stasis in the colon is seen. No abscess collection. Peritoneum: No abnormal intraperitoneal fluid. No free air. Ventral Wall: No hernia. Abdominal Nodes: No enlarged retroperitoneal or mesenteric lymph nodes. Vessels: Aorta and inferior vena cava are normal in size. PELVIS: Pelvic Organs: Unremarkable. Pelvic Nodes: Unremarkable. Miscellaneous: No inguinal hernias are seen. Bones: No aggressive appearing bony lesions. IMPRESSION: 1. PROCEDURE: CT KIDNEY URETER BLADDER (KUB) INDICATIONS: left flank pain TECHNIQUE: Axial sections were acquired from the lung bases to the pubic symphysis. Coronal and sagittal reformats were performed. For radiation dose reduction, the following was used: automated exposure control, adjustment of mA and/or kV according to patient size. COMPARISON: None. FINDINGS: Image quality: Diagnostic. Lower Chest: No significant findings. URINARY: Right Kidney: No stones or hydronephrosis. Right Ureter: No hydroureter. Left Kidney: There is mild prominence of left renal collecting system. Nonobstructing stone measures 6 mm in size is seen in midpole left kidney and measures 997 Hounsfield unit in density. There is a linear calcification in proximal left ureter just distal to left UPJ measures 4 x 2 mm in size series 2, image 49 and series 4 image 40. Left Ureter: More distal left ureter is normal in size. Bladder: Normal wall thickness. No stones. ABDOMEN: Liver: No contour-deforming solid mass. Gallbladder: No radiopaque gallstones or wall thickening. Biliary ducts: No biliary dilation. Pancreas: No ductal dilation. Spleen: Size is within normal limits. Adrenal Glands: No adrenal nodules. Stomach and Bowel: Normal colonic caliber, without significant wall thickening. Moderate fecal stasis in the colon is seen. No abscess collection. Peritoneum: No abnormal intraperitoneal fluid. No free air. Ventral Wall: No hernia. Abdominal Nodes: No enlarged retroperitoneal or mesenteric lymph nodes. Vessels: Aorta and inferior vena cava are normal in size. PELVIS: Pelvic Organs: Unremarkable. Pelvic Nodes: Unremarkable. Miscellaneous: No inguinal hernias are seen. Bones: No aggressive appearing bony lesions. IMPRESSION: 1. 4 x 2 mm left proximal ureteral stone just distal to left UPJ with mild left-sided hydronephrosis and mild left perinephric fat stranding. 2. Nonobstructing stone also seen in left kidney as above. No right-sided renal stones or hydronephrosis. Normal appearing urinary bladder. 3. [id number] constipation. No bowel obstruction or abnormal bowel wall thickening. No free fluid or free air. Dictated by: Martín Bennett M.D. on 08/12/2024 at 19:00 2. Nonobstructing stone also seen in left kidney as above. No right-sided renal stones or hydronephrosis. Normal appearing urinary bladder. 3. Mmxk-hj-yhmryyin constipation. No bowel obstruction or abnormal bowel wall thickening. No free fluid or free air. Dictated by: Martín Bennett M.D. on 08/12/2024 at 19:00 MDM Narrative Medical decision making narrative: CC: Acute left flank pain Complicating co-morbidities: Recurrent urinary tract infections Data collected from: patient Differential considered: Kidney stone, pyelonephritis, urinary tract infection, diverticulitis, pancreatitis, abdominal aneurysm Exam documented above, pertinent findings include: Mild left flank pain only otherwise remainder of exam is unremarkable Lab Test results independently reviewed as above. Pertinent findings: CBC is unremarkable Chemistries are reassuring Lipase is normal Imaging studies independently reviewed: CT KUB shows 4 x 2 mm left proximal ureteral stone just distal to left UPJ with mild left-sided hydronephrosis and mild left perinephric fat stranding. Treatments: IV Toradol, p.o. Flomax Re-evaluations: Discussion: 69-year-old woman with the acute onset left flank pain consistent with kidney stone 4 x 2 mm in the left proximal ureter. Pain has been completely controlled with Toradol, discussed anticipated course of recovery including using Tylenol for pain control oxycodone for severe pain,(she does not tolerate oral nonsteroidals) tamsulosin to see if this might relax the ureter slightly in encourage stone passage. The stone is high enough up and uniquely enough shaped that I believe Urology consultation we will be appropriate. We will refer her to [facility] for follow up. Discussed reasons to return to the emergency department including fevers or persistent pain that can not be controlled. There was no indication for additional imaging or hospitalization and she is safe for discharge Discharge Plan Departure Patient Disposition: Home Clinical Impression: Calculus, ureteral, Calculus of kidney Instructions: DI for Kidney Stones Activity Restrictions/Additional Instructions: Thank you for coming in today You have a 4 mm x 2 mm stone on the left side that is still way up by the kidney. There was another sound is not bothering anything right now in your kidney. You responded very well to Toradol in the emergency department. Unfortunately with your stomach issues you can not use nonsteroidals. You can use Tylenol for pain control and I have given you a prescription for oxycodone to add to this for severe pain. Oxycodone is a narcotic does have potential for addiction and will cause constipation so please make sure that you are using a stool softener if you choose to use the narcotic The stone is large enough and high enough up that you may need help in passing this. I am going to place you on tamsulosin, a medication that can relax the ureter slightly. I am also going to recommend that you follow up with [facility] The number for [facility] is [phone], please call them on Wednesday to schedule a ER follow up for left kidney stone. If you find that you are getting worse or develop any new symptoms, particularly fever or uncontrolled pain, please feel free to return to the emergency department for further evaluation. Prescriptions: New oxycodone 5 mg tablet 5 mg PO Q6H PRN (Reason: pain) Qty: 14 0RF tamsulosin 0.4 mg capsule 0.4 mg PO DAILY Qty: 14 0RF Rx Instructions: Discontinue if you pass your kidney stone No Action tretinoin 0.025 % cream 1 applic topical BEDTIME Qty: 45 5RF meloxicam 7.5 mg tablet 7.5 mg PO BID Qty: 180 3RF omeprazole 20 mg capsule,delayed release(DR/EC) 20 mg PO DAILY SHAR-e 400 mg tablet 400 mg PO DAILY AZO Urinary Tract Defense 162-162.5 mg tablet PO gabapentin 100 mg capsule 100 mg PO BEDTIME Qty: 90 3RF Rx Instructions: for sleep estradiol 10 mcg tablet 10 mcg vaginal 2XW Qty: 30 3RF trazodone 50 mg tablet 25 mg PO BEDTIME Ultra CoQ10 75 mg capsule 75 mg PO DAILY vitamin B complex Tablet 1 tab PO DAILY Patient Comments: Kirill Super B-Complex multivitamin with minerals Tablet 1 tab PO DAILY cholecalciferol (vitamin D3) [Vitamin D3] 50 mcg (2,000 unit) capsule 50 mcg PO DAILY omega 3-jme-yjf-fish oil [Fish Oil] 1,000 mg (120 mg-180 mg) capsule 1 cap PO DAILY Saccharomyces boulardii [Daily Probiotic (S. boulardii)] 250 mg capsule 5,000 mmu cells PO DAILY ketoconazole 2 % shampoo 1 applic topical 2XW Qty: 120 3RF Rx Instructions: Apply 5 to 10 mL to wet scalp, lather, leave on 3 to 5 minutes, and rinse; apply twice weekly for 2 to 4 weeks Referrals: Lloyd Graham ARNP [Primary Care Provider] - Stand Alone Forms: Patient Portal/API/Survey
--- NOTE | 2024-08-12 18:30 | DI.CT.S_ITS ---
PROCEDURE: CT KIDNEY URETER BLADDER (KUB) INDICATIONS: left flank pain TECHNIQUE: Axial sections were acquired from the lung bases to the pubic symphysis. Coronal and sagittal reformats were performed. For radiation dose reduction, the following was used: automated exposure control, adjustment of mA and/or kV according to patient size. COMPARISON: None. FINDINGS: Image quality: Diagnostic. Lower Chest: No significant findings. URINARY: Right Kidney: No stones or hydronephrosis. Right Ureter: No hydroureter. Left Kidney: There is mild prominence of left renal collecting system. Nonobstructing stone measures 6 mm in size is seen in midpole left kidney and measures 997 Hounsfield unit in density. There is a linear calcification in proximal left ureter just distal to left UPJ measures 4 x 2 mm in size series 2, image 49 and series 4 image 40. Left Ureter: More distal left ureter is normal in size. Bladder: Normal wall thickness. No stones. ABDOMEN: Liver: No contour-deforming solid mass. Gallbladder: No radiopaque gallstones or wall thickening. Biliary ducts: No biliary dilation. Pancreas: No ductal dilation. Spleen: Size is within normal limits. Adrenal Glands: No adrenal nodules. Stomach and Bowel: Normal colonic caliber, without significant wall thickening. Moderate fecal stasis in the colon is seen. No abscess collection. Peritoneum: No abnormal intraperitoneal fluid. No free air. Ventral Wall: No hernia. Abdominal Nodes: No enlarged retroperitoneal or mesenteric lymph nodes. Vessels: Aorta and inferior vena cava are normal in size. PELVIS: Pelvic Organs: Unremarkable. Pelvic Nodes: Unremarkable. Miscellaneous: No inguinal hernias are seen. Bones: No aggressive appearing bony lesions. IMPRESSION: 1. 4 x 2 mm left proximal ureteral stone just distal to left UPJ with mild left-sided hydronephrosis and mild left perinephric fat stranding. 2. Nonobstructing stone also seen in left kidney as above. No right-sided renal stones or hydronephrosis. Normal appearing urinary bladder. 3. Bsuj-fg-nptbjsqm constipation. No bowel obstruction or abnormal bowel wall thickening. No free fluid or free air. Dictated by: Martín Bennett M.D. on 08/12/2024 at 19:00 Approved by: Martín Bennett M.D. on 08/12/2024 at 19:03
[2024-08-12 18:42] LABS: Bacteria Urine Occasional (0-1); RBC Urine >100/HPF (0-5/HPF); Squamous Epithelial Cell Urine 1-5 /HPF (0-5/HPF); Urine Volume 10mL (spun); WBC Urine 0-1/HPF (0-5/HPF)
[2024-08-12] MEDS: OXYCODONE/APAP 5/325 PREPACK 1 BOTTLE MISC (21:05)
[2024-08-12] MEDS: TAMSULOSIN 0.4 MG CAPSULE PO (21:05)
== END 2024-08-12 21:17 | disposition home or self-care (01) ==
PROVIDERS: Emergency Medicine; Emergency Provider Emergency Medicine; Family Provider Registered Nurse Diabetes Educator; PCP Registered Nurse Diabetes Educator
DX: N20.1 Calculus of ureter (principal); N20.0 Calculus of kidney
CPT/HCPCS: 74176; 80053; 81003; 81015; 83690; 85025; 87086; 93005; 96374; 96375; 99284; J1885; J2405

== ENCOUNTER 2024-08-28 11:58 | Day surgery (SDC) | payer OTHER, SELFPAY ==
[2024-08-25 12:17] VITALS: BMI 21.5
[2024-08-28] VITALS (7 sets, daily range): BP systolic 94–117; BP diastolic 49–70; PULSE 71–106; RESP 10–14; TEMP 36.2–36.6; O2SAT 95–99; BMI 21.5
--- NOTE | 2024-08-28 | DI.RAD.S_ITS ---
PROCEDURE: XR ABDOMEN 1V INDICATIONS: LEFT STENT PLACEMENT TECHNIQUE: 2 intra-operative images acquired by the Urology service. COMPARISON: None. FINDINGS: Intraoperative fluoroscopic images shows placement of a left-sided ureteral stent and contrast opacification of left collecting system. IMPRESSION: Fluoro guidance was provided intraoperatively for left-sided ureteral stent placement performed by ordering physician. Dictated by: Martín Bennett M.D. on 08/28/2024 at 20:27 Approved by: Martín Bennett M.D. on 08/28/2024 at 20:27
[2024-08-28] MEDS: LACTATED RINGERS 1,000 ML 21 ML IV ×2 (12:49→15:26)
[2024-08-28] MEDS: ACETAMINOPHEN 325 MG TABLET 650 MG PO (13:10)
--- NOTE | 2024-08-28 14:34 | PM.PREOP ---
Pre-operative Note COVID-19 COVID-19 status: Not tested Interval Note History & Physical reviewed/Exam performed by Physician: Yes Changes to H&P: No
[2024-08-28] MEDS: levoFLOXacin 500 MG/100 ML PIGGYBACK 100 MG IV (15:01)
--- NOTE | 2024-08-28 15:16 | SUR.OPER ---
Lithotomy on padded OR bed, head on pillow, Right arm secured on padded arm boards at <90 degrees abduction, left arm padded and tucked. Legs secured in padded yellow fins stirrups.
[2024-08-28] MEDS: iopamidoL 30 ML VIAL INJ (15:23)
--- NOTE | 2024-08-28 16:08 | P.OP_ITS ---
Operative Date/Time/Diagnoses Date of procedure: 08/28/24 Pre-op diagnosis: Left ureteral calculus Post-op diagnosis: same Procedure & Clinicians Procedure: Cystoscopy Left retrograde ureteropyelogram Left ureteroscopy, laser lithotripsy Left ureteral stent placement Intraoperative interpretation of fluoroscopic images, total time < 1 hour Same procedure as scheduled: Yes Indications: 69 y/o F w/ a newly diagnosed 4mm left proximal ureterolith and a 6mm left lower pole calculus who is on medical expulsion therapy. Discussed treatment options to include continued medical expulsion therapy (recommended given the relatively small size of her stone) vs cystoscopy, ureteroscopy, laser lithotripsy with ureteral stent placement. However, she leads a very physically active life and has several travel plans in the near future and would strongly desire surgical management. Surgeon: Scar Alfredo Click Yes if Unassisted: Yes Anesthesia Type: General Operative Notes Findings: Small left proximal ureterolith, moderate sized left lower pole calculus Closure Type: not applicable Specimen(s): other (left ureteral stone) Estimated Blood Loss (mL): 2 Blood products transfused: none Procedure in detail: Procedures: 1) Cystoscopy 2) Left retrograde ureteropyelogram 3) Left ureteroscopy, laser lithotripsy 4) Left ureteral stent placement 5) Intraoperative interpretation of fluoroscopic images, < 1 hour, all images saved to PACS Indication: Patient was identified in the preoperative holding area and consent confirmed. She was then brought to the operating room where general anesthesia was induced.? She was placed in the low lithotomy position. She was then prepped and draped in the usual sterile fashion. A surgical timeout was conducted and all were in agreement. ?Access to the bladder was obtained via a 30 degree cystoscope.? Complete cystoscopy was then performed and no concerning bladder masses or lesions were appreciated.? Bilateral ureteral orifices were easily identified and noted to be orthotopic in nature.? The left ureteral orifice was then cannulated using a 5Fr ureteral catheter over a 0.035 sensor tip ureteral guidewire. The guidewire was advanced into the left renal collecting system and the ureteral catheter was removed. A 12/14Fr ureteral access sheath was then advanced over the ureteral guidewire and into the proximal left ureter.? The ureteral guidewire and inner obturator were then removed.? The flexible ureteroscope was then advanced through the ureteral access sheath and to the level of the left proximal ureter where a small stone was encountered and removed via the stone basket.? Complete pyeloscopy was then performed and a moderate sized calculus was noted to be within a left lower pole calyx.? Laser lithotripsy was then performed utilizing the 200 micron laser fiber.? All stone fragments >1mm in size were removed via the stone basket and sent for chemical analysis.? A retrograde pyelogram was then performed which noted no filling defects concerning for residual stone.? The ureteral guidewire was then readvanced through the ureteroscope and into the left renal pelvis.? The ureter was then directly visualized upon removal of the ureteroscope and ureteral access sheath and noted to be stone free.? The cystosc ope was then backloaded over the ureteral guidewire and advanced into the bladder.? A 6Fr multi-length JJ ureteral stent with strings was then advanced over the ureteral guidewire.? Upon removal of the guidewire, a good curl was noted within the left renal pelvis upon fluoroscopy and visually within the bladder.? The bladder was then drained and the cystoscope was removed.? Anesthesia was reversed, she was extubated in the OR and transferred to the PACU in stable condition for recovery. Complications: none Post-operative Condition: stable Disposition: PACU Plan for aftercare: Discharge home from PACU. Will return to Urology clinic in 3 months for a RBUS and stone analysis review.
[2024-08-28] MEDS: OXYCODONE IR 5 MG TABLET PO (16:38)
[2024-08-28] MEDS: OXYBUTYNIN 5 MG TABLET 10 MG PO (16:45)
[2024-08-28] MEDS: PHENAZOPYRIDINE 100 MG TABLET 200 MG PO (16:45)
[2024-09-06 09:40] LABS: Ca oxalate dihydrate 20 % (.); Ca oxalate monohydr 80 % (.); Size 4x2 mm (.)
== END 2024-08-28 17:00 | disposition home or self-care (01) ==
PROVIDERS: Family Provider Registered Nurse Diabetes Educator; PCP Registered Nurse Diabetes Educator; Referring Provider Urology; Visit Provider Urology
PROC: 0TF78ZZ Fragmentation in Left Ureter, Via Natural or Artificial Opening Endoscopic (ICD-10-PCS; CPT 52353; principal; 2024-08-28 13:45)
DX: N20.1 Calculus of ureter (principal)
CPT/HCPCS: 52356; 74018; 74420; 76000; 82365; C2617; J1100; J1956; J2405; J2704; J3010; Q9967

== ENCOUNTER → 2024-09-29 09:50 | Outpatient (CLI) | payer OTHER, SELFPAY ==
[2024-09-29 10:25] LABS: Add Manual Diff / Slide Review NO; Basophils Absolute Auto 0 /uL (0-100); Basophils Percent Auto 0.6 % (0-2); Eosinophils Absolute Auto 0 /uL (0-450); Eosinophils Percent Auto 0.7 % (2-4); Hematocrit 38.2 % (36-46); Hemoglobin 13.2 g/dL (12.0-16.0); Lymphocytes Absolute Auto 1600 /uL (1100-4500); Lymphocytes Percent Auto 26.9 % (25-40); Mean Corpuscular HGB Conc 34.5 % (30-36); Mean Corpuscular Hemoglobin 31.2 PG (26-34); Mean Corpuscular Volume 90.4 fL (80-100); Monocytes Absolute Auto 400 /uL (0-900); Monocytes Percent Auto 6.5 % (3-14); Neutrophils Absolute Auto 3900 /uL (1500-7000); Neutrophils Percent Auto 65.3 % (50-75); Platelet Count 177 X10^3/uL (150-400); Red Blood Cell Count 4.22 X10^6/uL (4.0-5.2); Red Cell Distribution Width 12.9 % (11.6-14.8); White Blood Cell Count 5.9 X10^3/uL (4.5-11.0)
[2024-09-29 10:43] LABS: Erythrocyte Sedimentation Rate 5 MM/HR (0-20)
[2024-09-29 10:54] LABS: Alanine Aminotransferase 21 IU/L (<35); Albumin 4.5 g/dL (3.5-5.0); Alkaline Phosphatase 41 U/L (38-126); Aspartate Aminotransferase 29 IU/L (14-36); BUN Creatinine Ratio 30.6 (6-22); Bilirubin Total 0.6 mg/dL (0.2-1.3); Blood Urea Nitrogen 22 mg/dL (7-17); C-Reactive Protein Quant < 0.5 mg/dL (<1.0); Calcium 9.7 mg/dL (8.4-10.2); Carbon Dioxide 26 mmol/L (22-32); Chloride 102 mmol/L (98-107); Estimated Glomerular Filt Rate > 60 mL/min (>60); Globulin 2.2 g/dL (1.7-4.1); Glucose 105 mg/dL (70-99); HEMOLYSIS < 15 (0-50); Sodium 137 mmol/L (137-145); Total Protein 6.7 g/dL (6.3-8.2)
[2024-09-29 10:55] LABS: Rheumatoid Factor < 8.6 IU/mL (<12.0)
[2024-09-29 11:54] LABS: Folate 18.2 ng/mL (2.76-20.0); Vitamin B12 913 pg/mL (239-931)
[2024-09-30 04:36] LABS: IGA 169 mg/dL (87-352); IGG 550 mg/dL (586-1602); IGM 44 mg/dL (26-217)
[2024-10-02 14:36] LABS: Albumin 3.9 g/dL (2.9-4.4); Alpha-1-Globulin 0.2 g/dL (0.0-0.4); Alpha-2-Globulin 0.8 g/dL (0.4-1.0); Gamma Globulin 0.6 g/dL (0.4-1.8); Globulin Total 2.5 g/dL (2.2-3.9); Protein, Total 6.4 g/dL (6.0-8.5)
[2024-10-03 15:09] LABS: ANA Screen, IFA Positive (.)
[2024-10-05 15:11] LABS: Vitamin B1 145.1 nmol/L (66.5-200.0)
== END ==
PROVIDERS: Family Provider Registered Nurse Diabetes Educator; PCP Registered Nurse Diabetes Educator; Referring Provider Podiatrist Foot & Ankle Surgery; Visit Provider Podiatrist Foot & Ankle Surgery
DX: G60.9 Hereditary and idiopathic neuropathy, unspecified (principal)
CPT/HCPCS: 36415; 80053; 82607; 82746; 82784; 84155; 84165; 84425; 85025; 85651; 86038; 86140; 86430

== ENCOUNTER → 2024-10-30 11:18 | Outpatient (CLI) | payer OTHER, SELFPAY ==
--- NOTE | 2024-10-30 11:18 | DI.MG.S_ITS ---
MM screening mammo BI: 10/30/2024. BI-RADS: 1 CLINICAL: 69-year old female for bilateral screening mammogram. Tyrer-Cuzick lifetime risk of 8.7%. Current reported family history of breast cancer: mother. PRIOR EXAMS Breast MRI(s): 08/09/2024. Three Other Exams on 10/29/2023, 11/10/2022, 05/12/2022. MAMMOGRAPHY TECHNIQUE: 2D and 3D (tomosynthesis) digital mammographic views obtained, with additional images as needed for full coverage. Current study was also evaluated with a Computer Aided Detection (CAD) system. DENSITY C. The breasts are heterogeneously dense, which may obscure small masses. MAMMOGRAPHY FINDINGS Bilateral: No suspicious mass, asymmetry, microcalcification, or other abnormality seen. IMPRESSION: * No evidence of malignancy. RECOMMENDATIONS Bilateral * Annual screening mammography. OVERALL ASSESSMENT CATEGORY BI-RADS-1: Negative. The [employer] recommends annual screening mammography beginning at age 40 for women with average risk of breast cancer. ELECTRONICALLY SIGNED: Yevgeniy Osei M.D. on 10/30/2024 at 05:03:34 PM PT Interpreting Station ID: [id number]
== END ==
PROVIDERS: Family Provider Registered Nurse Diabetes Educator; PCP Registered Nurse Diabetes Educator; Referring Provider Registered Nurse Diabetes Educator; Visit Provider Registered Nurse Diabetes Educator
DX: Z12.31 Encounter for screening mammogram for malignant neoplasm of breast (principal); R92.333 Mammographic heterogeneous density, bilateral breasts; Z80.3 Family history of malignant neoplasm of breast
CPT/HCPCS: 77063; 77067

== ENCOUNTER → 2024-11-20 11:46 | Outpatient (CLI) | payer OTHER, SELFPAY ==
--- NOTE | 2024-11-20 11:48 | DI.US.S_ITS ---
PROCEDURE: US RENAL COMPLETE INDICATIONS: POST LEFT URETEROSCOPY. ?HYDRONEPHROSIS TECHNIQUE: Real-time scanning was performed of the kidneys and bladder, with image documentation. COMPARISON: [facility], CT, CT KIDNEY URETER BLADDER (KUB), 08/12/2024, 18:36. FINDINGS: Kidneys: Kidneys are normal in size. Right kidney measures 9.2 cm long; left kidney measures 10.3 cm long. Right renal cortical thickness is 1.2 cm; left renal cortical thickness is 1.2 cm. Renal cortical echotexture is normal. Simple cystic cluster arises exophytically from the left medial mid pole measuring up to 2.1 cm. No solid component or vascular flow. No hydronephrosis or nephrolithiasis. No suspicious solid mass lesions. Bladder: Pre-void bladder volume is 469 mL. Post-void residual is nine mL. Pre-void images demonstrate no intraluminal masses or stones. On pre-void images, bilateral ureteral jets are noted with color Doppler interrogation. (Of note, ureteral jets may not be detectable in up to 25% of cases due to insufficient differences in specific gravity between ureteral and bladder urine). Miscellaneous: No free pelvic fluid. IMPRESSION: No evidence of hydronephrosis post ureteroscopy. 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 Dictated by: Trena Lacy M.D. on 11/20/2024 at 16:50 Approved by: Trena Lacy M.D. on 11/20/2024 at 16:53
== END ==
LOC: US 11:47
PROVIDERS: Family Provider Registered Nurse Diabetes Educator; PCP Registered Nurse Diabetes Educator; Referring Provider Urology; Visit Provider Urology
DX: N20.1 Calculus of ureter (principal); N28.1 Cyst of kidney, acquired
CPT/HCPCS: 76770

== ENCOUNTER → 2025-01-11 07:15 | Outpatient (CLI) | payer OTHER, SELFPAY ==
--- NOTE | 2025-01-11 07:16 | DI.MRI.S_ITS ---
PROCEDURE: MR ANKLE LT WO CON INDICATIONS: pain TECHNIQUE: Noncontrast sagittal T1 spin echo and T2 fast spin echo with fat saturation, axial proton density fast spin echo and T2 fast spin echo with fat saturation, coronal T1 spin echo and T2 fast spin echo with fat saturation through the ankle/hindfoot. COMPARISON: [facility], MR, MR ANKLE LEFT WITHOUT CONTRAST, 08/12/2022, 19:00. FINDINGS: Image quality: Adequate. The extensor tendons are unremarkable. Peroneal tendons are unremarkable. Small partial tear and tendinopathy of the posterior tibialis tendon at the navicular insertion. Flexor hallucis longus and flexor digitorum longus tendons are unremarkable. Achilles tendon is intact. Mildly increased signal of the proximal plantar fascia. Medial and lateral ankle ligaments are intact. No discrete cartilage defect identified. No joint effusion. Mild reactive edema at the PTT insertion on the navicular. Sinus tarsi is unremarkable. Tarsal tunnel is unremarkable. Lisfranc ligament is intact. IMPRESSION: Small partial tear of the TT at the navicular insertion. Possible chronic plantar fasciitis. Dictated by: Bill To M.D. on 01/11/2025 at 9:02 Approved by: Bill To M.D. on 01/11/2025 at 9:08
== END ==
LOC: MRI 07:16
PROVIDERS: Family Provider Registered Nurse Diabetes Educator; PCP Registered Nurse Diabetes Educator; Referring Provider Podiatrist Foot & Ankle Surgery; Visit Provider Podiatrist Foot & Ankle Surgery
DX: M76.821 Posterior tibial tendinitis, right leg (principal); M76.822 Posterior tibial tendinitis, left leg
CPT/HCPCS: 73721

== ENCOUNTER → 2025-04-18 08:22 | Outpatient (CLI) | payer OTHER, SELFPAY ==
[2025-04-18 09:02] LABS: Add Manual Diff / Slide Review NO; Hematocrit 41.6 % (36-46); Hemoglobin 14.2 g/dL (12.0-16.0); Lymphocytes Absolute Auto 1900 /uL (1100-4500); Mean Corpuscular HGB Conc 34.1 % (30-36); Mean Corpuscular Hemoglobin 30.5 PG (26-34); Mean Corpuscular Volume 89.4 fL (80-100); Platelet Count 208 X10^3/uL (150-400)
[2025-04-18 09:37] LABS: Hemoglobin A1C% w Est Avg Glu 5.0 % (4.0-6.0)
[2025-04-18 10:04] LABS: Alanine Aminotransferase 20 IU/L (<35); Albumin 4.5 g/dL (3.5-5.0); Albumin Globulin Ratio 2.0 (1.0-2.8); Alkaline Phosphatase 41 U/L (38-126); Blood Urea Nitrogen 21 mg/dL (7-17); Calcium 9.7 mg/dL (8.4-10.2); Carbon Dioxide 27 mmol/L (22-32); Chloride 103 mmol/L (98-107); Cholesterol 172 mg/dL (140-199); Estimated Glomerular Filt Rate > 60 mL/min (>60); Globulin 2.3 g/dL (1.7-4.1); Glucose 94 mg/dL (70-99); HDL Cholesterol 74 mg/dL (40-60); HEMOLYSIS < 15 (0-50); Magnesium 2.1 mg/dL (1.6-2.3); Potassium 4.3 mmol/L (3.4-5.1); Sodium 139 mmol/L (137-145); Total Protein 6.8 g/dL (6.3-8.2); Triglycerides 93 mg/dL (35-150)
[2025-04-18 10:18] LABS: Free T4, Direct Thyroxine 1.03 ng/dL (0.78-2.19)
[2025-04-18 10:32] LABS: Thyroid Stimulating Hormone 1.65 uIU/mL (0.47-4.68)
== END ==
PROVIDERS: Family Provider Registered Nurse Diabetes Educator; PCP Registered Nurse Diabetes Educator; Referring Provider Internal Medicine Cardiovascular Disease; Visit Provider Internal Medicine Cardiovascular Disease
DX: Z13.1 Encounter for screening for diabetes mellitus (principal); E78.2 Mixed hyperlipidemia; R06.02 Shortness of breath
CPT/HCPCS: 36415; 80053; 80061; 83036; 83735; 84439; 84443; 85025